=== PATIENT | female | born 1990 | race Caucasian/White ===

== ENCOUNTER 2018-11-23 10:05 | Day surgery (SDC) | payer SELFPAY ==
[2018-11-23 10:22] VITALS: BMI 18.6
[2018-11-23] MEDS ORDERED: Betamet Acet/Betamet Na Ph 30 MG/5 ML VIAL ONE (11:32)
[2018-11-23] MEDS ORDERED: Betamet Acet/Betamet Na Ph 30 MG/5 ML VIAL IM SCH (12:00)
--- NOTE | 2018-11-23 12:58 | ULT ---
OB ULTRASOUND: INDICATION: Intrauterine with vaginal bleeding. The patient has a known subchorionic hemorrhage. COMPARISON: There are no comparison studies. FINDINGS: There is a single viable intrauterine identified. gestational age by ultrasound measuremen ts is 24 weeks 4 days. There is an anterior placenta which is low lying. The anterior placenta extends to the internal os a nd may partially cover the os. I cannot exclude partial previa. There is abnormal hypoechoic echogenicity seen between the uterine wall and the placenta in the lower uterine segment just above the internal os. This presumably represents the area of subchorionic hem orrhage which has been previously documented. Cervical length: 3.2 cm. heart rate: 168 b.p.m. Presentation: Vertex. Amniotic fluid: Adequate. BETO recorded at 10.1 cm. IMPRESSION: 1. Viable intrauterine gestation of 24 weeks 4 days by ultrasound measurement. 2. Anterior low-lying placenta. The tip of the placenta extends to the internal os and may partiall y cover the os. 3. There is abnormal hypoechogenicity between the low-lying placenta and uterine wall in the lower u terine segment which would be consistent with known area of subchorionic hemorrhage. POS: [facility]
--- NOTE | 2018-11-23 12:59 | PRG ---
DATE OF SERVICE: 11/23/2018 PRESENTING COMPLAINT: Vaginal bleeding and occasional contractions at 24 weeks. HISTORY OF PRESENT ILLNESS: Ms. Epperson is a 28-year-old 3, para 1, AB 1, at 24 weeks' gestation[address] She [address] Dr[address] Vinson. She has a known history of low-lying placenta and a subchorionic hematoma. She has had some bleeding off and on for the past several weeks. She reports today that there was a sudden gush and she was concerned that it might be rupture of membranes. She reports it was dark blood, not bright red. She had some mild contractions. She reports an active fetus. BUSINESS INTELLIGENCE DIRECTOR history is noted. Blood type Rh positive. Otherwise, uncomplicated . PAST MEDICAL HISTORY: None. PAST SURGICAL HISTORY: None. ALLERGIES: DENIES. MEDICATIONS: vitamins. SOCIAL HISTORY: Denies tobacco, alcohol, or drug use. FAMILY HISTORY: Noncontributory. REVIEW OF SYSTEMS: Noncontributory. PHYSICAL EXAMINATION: GENERAL: White female, resting comfortably. VITAL SIGNS: FHTs 130s. Temperature 98.6, respirations 18, blood pressure 118/72. HEENT: Within normal limits. LUNGS: Clear to auscultation bilaterally. HEART: Regular rhythm. ABDOMEN: Soft, nontender. Fundal height 24 cm. FHTs 130s. Vulvar lesions. Vagina with a small to moderate amount of old blood. No pooling fluid. Her cervix is closed, long and high on exam. EXTREMITIES: No clubbing, cyanosis, or edema. IMAGING STUDIES: Ultrasound performed revealed an BETO of greater than 10 cm with a persistent low-lying placenta. Cervix of approximately 3 cm in length. IMPRESSION: Expulsion of unknown retroplacental hematoma clot without evidence of labor or rupture of membranes. PLAN: Discussed with the patient options. We will go ahead and administer corticosteroids because of elevated risk of delivery. The patient will receive second dose tomorrow. She is discharged home and keep scheduled followup with Dr. Vinson. Job ID: [id number]
== END 2018-11-23 11:35 | disposition home or self-care (01) ==
LOC: L&D/OP 10:05 → EEVIPCON 10:05 → L&D/OP 11:35
PROVIDERS: ATTEND Obstetrics & Gynecology
DX: O44.52 Low lying placenta with hemorrhage, second trimester (principal); Z3A.24 24 weeks gestation of pregnancy; Z79.899 Other long term (current) drug therapy
CPT/HCPCS: 76815; 96372; 99282; J0702

== ENCOUNTER 2018-12-09 08:23 | Inpatient (IN) | payer BC ==
[2018-12-09] MEDS ORDERED: Calcium Gluconate 4.6 MEQ in Sodium Chloride 0.9% 100 ML IVPB PRN (08:41)
[2018-12-09] MEDS ORDERED: Magnesium Sulfate 20 GM/WATER 500 ML BAG IVPB SCH (08:45)
[2018-12-09] MEDS ORDERED: Lactated Ringer's 1,000 ML IV SCH (08:45)
[2018-12-09] MEDS ORDERED: Magnesium Sulfate 20 gm/500 ml 20 GM/500 ML BAG ONE (08:57)
[2018-12-09 09:10] LABS: Amnisure Test RUPTURE DETECTED (No Rupture)
[2018-12-09 09:12] LABS: Amnisure Internal Control QC ACCEPTABLE (ACCEPTABLE)
[2018-12-09 09:23] VITALS: BMI 19.9
[2018-12-09] MEDS ORDERED: Zolpidem Tartrate 5 MG TAB PO PRN (09:45)
[2018-12-09] MEDS: Magnesium Sulfate 20 gm/500 ml 20 GM/500 ML BAG IVPB SCH ×2 (09:45→19:22)
[2018-12-09] MEDS: Lactated Ringer's 1,000 ML IV SCH ×2 (09:45→23:57)
[2018-12-09] MEDS ORDERED: Azithromycin 250 MG TAB PO SCH (09:45)
--- NOTE | 2018-12-09 09:56 | PDOC.LDHP ---
Labor and Delivery H&P Chief complaint: loss of fluid HPI: Pt is a 28yo Allergies/Adverse Reactions: Allergies Allergy/AdvReac Type Severity Reaction Status Date / Time No Allergy Information Allergy Verified 12/09/18 09:18 Available - Plan Plan: admit to L&D, GBS antibiotic prophylaxis, magnesium for neuroprotection, informed consent obtained, anesthesia consult for pain management -: A/P: Pt
[2018-12-09 10:22] LABS: Hemoglobin 12.9 g/dL (12.0-16.0); Mean Corpuscular HGB CONC 33.5 g/dL (32.0-36.0); Mean Corpuscular Hemoglobin 32.5 pg (27.0-31.0); Mean Platelet Volume 7.4 fL (7.4-10.4); Platelet Count 184 thou/uL (130-400); RBC Distribution Width 11.7 % (11.5-14.5); Red Blood Cell (RBC) Count 3.97 mill/uL (4.20-5.40); White Blood Cell (WBC) Count 8.7 thou/uL (4.8-10.8)
[2018-12-09] MEDS: Ampicillin 2 GM in Sodium Chloride 0.9% 100 ML IVPB SCH ×3 (10:25→23:57)
--- NOTE | 2018-12-09 10:36 | PDOC.LDHP ---
Labor and Delivery H&P Chief complaint: loss of fluid HPI: Pt is a 28yo @ 26.4 weeks who reports PPROM overnight. complicated by chronic subchorionic hemorrhage and bleeding 2 weeks ago. Current gestational age (weeks): 26 Due date: 03/13/19 Dating criteria: last menstrual period, first trimester ultrasound Grav: 3 Para: 1 OB History Details: chronic subchorionic hemorrhage and bleeding @ 24 weeks Current complications: other (bleeding @ 24 weeks, chronic subchorionic hemorrage) Past Medical History: none Current medications: pre-christian vitamins Previous surgical history: none Allergies/Adverse Reactions: Allergies Allergy/AdvReac Type Severity Reaction Status Date / Time No Allergy Information Allergy Verified 12/09/18 09:18 Available Social history: none - Physical Exam Vital signs reviewed and normal: yes General: NAD Heart: RRR Lungs: CTAB Abdomen: gravid Extremeties: no edema FHT: category 1 - Vaginal Exam cm dilated: 0 (closed and 3.7cm on US) - OB Labs Blood type: A RH: positive Antibody Screen: negative HIV: negative RPR: negative HEPSAg: negative 1 hour GCT: negative GBS: unknown Rubella: immune - Assessment L&D Assessment: premature rupture of membranes - Plan Plan: admit to L&D, GBS antibiotic prophylaxis, magnesium for neuroprotection, informed consent obtained, anesthesia consult for pain management -: A/P: 28yo @ 26.4 weeks w PPROM. -Magnesium -rescue dose of Celestone x 1 ordered (rec'd > 2 weeks ago @ 24 weeks) -Azithromycin and ampicillin ordered -bedside US VTX, EFW pending, placenta low lying on MFM report and BVWC report, appears to be low lying on US today as well, report pending -monitor for si/sx of labor, delivery for /maternal indications -NICU aware
[2018-12-09] MEDS: Betamet Acet/Betamet Na Ph 30 MG/5 ML VIAL IM SCH (10:59)
[2018-12-09 11:05] LABS: Syphilis Antibody Nonreactive (Nonreactive); Syphilis Antibody Index 0.04 S/CO (<1.00 Non-Reactive)
--- NOTE | 2018-12-09 13:12 | ULT ---
OB ULTRASOUND: Date: 12/09/18 HISTORY: Follow-up size and dates. Amniotic fluid volume. COMPARISON: 11/23/18 study. FINDINGS: Real-time imaging of the pelvis shows a single, viable intrauterine , which is in a cephalic presentation. The placenta is anterior in location. It does not appear to represent a previa on this examination. It is slightly low-lying, but does not cover the cervical os. The cervical canal length is 3.7 cm. Amniotic fluid volume is reduced. Amniotic fluid index is 5.1. measurements are as follows: BPD: 7.0 cm, 28 weeks/2 days HC: 24.9 cm, 27 weeks/0 days AC: 20.3 cm, 24 weeks/6 days FL: 4.8 cm, 25 weeks/6 days The heart rate is 150 beats/minute. Assessment of anatomy was not performed on this study . IMPRESSION: 1. Single, viable intrauterine in cephalic presentation. Overall measurements correspond t o a gestational age of 26 weeks/4 days. Estimated date of delivery is 03/13/19. This is consistent wi th estimated age from the previous ultrasound of 11/23/18. Of note, there is a developing mild discre pancy between head measurements and abdominal circumference and femur length measurements, raising th e possibility of a developing intrauterine growth retardation. 2. Placenta which is anterior in location. It is low-lying. The lower margin of the placenta comes v syed close to the cervical os, but does not definitely extend over the os. I still would recommend fol low-up ultrasound for reassessment of this. 3. Oligohydramnios and amniotic fluid index of 5.8 was obtained on this study. POS: [facility]
--- NOTE | 2018-12-09 13:47 | PDOC.LDPN ---
Labor & Delivery Progress Note - Subjective Subjective: other (ctx q 10-15 mins) - Objective Vital signs reviewed and normal: yes General: resting FHT: variability present AROM: bloody fluid (scant dark blood w amniotic fluid) - Assessment (1) 26 weeks gestation of Code(s): Z3A.26 - 26 WEEKS GESTATION OF Current Visit: Yes Status : Acute (2) History of premature rupture of membranes (PPROM) Code(s): Z87.59 - PERSONAL HISTORY OF COMP OF PREG, CHLDBRTH AND THE PUERP Current Visit: Yes Status: Acute Plan: continue plan of care -: A?P: Irregular ctx, continue Mag and latency abx. Notify for increase pain/ frequ of contractions and SVE at that time if indicated.
--- NOTE | 2018-12-09 14:40 | PDOC.APC ---
Antepartum Consult AIDA NARVAEZ is a 28 year old female at [26 4/7] gestational weeks. She presented to L&D with SROM. She received BMZ on 11/23 for vaginal bleeding and chronic subchorionic bleeding. I was asked by Dr Casanova to speak with the patient regarding anticipated course for a baby born at 26 weeks. I outlined that the timing and mode of delivery is a decision that will be made by the OB service. Once the patient is taken for delivery, the resuscitation team will be present. The initial focus will be on respiratory stabilization and may include CPAP or intubation with surfactant administration. I discussed that the patient will need to be admitted to the NICU in an isolette due to temperature instability associated with prematurity. We will then obtain IV access umbilical given gestational age as babies are at risk for hypoglycemia, will need BP monitoring and blood draws as well as TPN administration while slowly increasing feeds. We discussed that babies born are at higher risk for feeding intolerance, infection and jaundice. I discussed that breastmilk is the best nutrition for babies and she is strongly encouraged to pump after delivery. Mother does plan to breastfeed and we discussed the availability of donor milk. We discussed slowly increasing enteral feedings and the use of TPN while increasing feeding volumes. I outlined the need for a feeding tube (OG or NG) until suck/swallow/breathe reflex can be established. We discussed the need for ROP and head US screening. I explained that the duration of hospital stay will be determined on the clinical course of the baby. I outlined the milestones that needed to be achieved to ensure safe discharge home. They had the opportunity to ask questions. I encouraged them to contact our service again if additional questions arise. Labs: Ante Labs Blood Type A POSITIVE 12/09/18 10:04
[2018-12-09 15:47] LABS: Hep B Surf Ag Non-Reactive S/CO (NonReactive)
[2018-12-10] MEDS: Ampicillin 2 GM in Sodium Chloride 0.9% 100 ML IVPB SCH ×3 (05:36→18:07)
[2018-12-10] MEDS: Magnesium Sulfate 20 gm/500 ml 20 GM/500 ML BAG IVPB SCH (05:38)
--- NOTE | 2018-12-10 07:41 | PDOC.LDPN ---
Labor & Delivery Progress Note - Subjective Subjective: comfortable (no contractions overnight, no fever/chills or fundal tenderness, +FM noted) - Objective Vital signs reviewed and normal: yes General: resting Uterine fundus: non tender - Assessment (1) 26 weeks gestation of Code(s): Z3A.26 - 26 WEEKS GESTATION OF Current Visit: Yes Status : Acute (2) History of premature rupture of membranes (PPROM) Code(s): Z87.59 - PERSONAL HISTORY OF COMP OF PREG, CHLDBRTH AND THE PUERP Current Visit: Yes Status: Acute Plan: other -: A/P: @ 26.5 w PPROM @ 26.4. S/P steroid benefits @ 24 weeks with rescue dose Celestone given approx 24hrs ago. Discussed continue IV abx, DC magnesium and continue to monitor closely on L and D. Discussed restart magnesium if delivery is imminent and <32 weeks GA. IOL for /maternal indications reviewed.
[2018-12-10] MEDS ORDERED: Bicitra 30 ML UDCUP ONE (11:50)
[2018-12-10] MEDS: Prenatal Vitamin 1 TAB PO SCH (12:19)
[2018-12-10] MEDS: Betamet Acet/Betamet Na Ph 30 MG/5 ML VIAL IM SCH (12:19)
[2018-12-10] MEDS: Floranex Packet PO SCH (12:20)
[2018-12-10] MEDS: Azithromycin 250 MG TAB PO SCH (12:20)
[2018-12-10] MEDS: Lactated Ringer's 1,000 ML IV SCH (22:35)
[2018-12-11] MEDS: Ampicillin 2 GM in Sodium Chloride 0.9% 100 ML IVPB SCH ×2 (00:55→06:12)
[2018-12-11] MEDS: Lactated Ringer's 1,000 ML IV SCH (00:56)
[2018-12-11] MEDS: Prenatal Vitamin 1 TAB PO SCH (09:17)
[2018-12-11] MEDS: Azithromycin 250 MG TAB PO SCH (09:17)
[2018-12-11] MEDS: Floranex Packet PO SCH (09:18)
--- NOTE | 2018-12-11 09:23 | PDOC.LDPN ---
Labor & Delivery Progress Note - Subjective Subjective: comfortable (no contractions, occ leaking, passed a 2-3cm old/brown clot last night, no bleeding noted otherwise, no fever/chills, no tenderness) - Objective Vital signs reviewed and normal: yes Uterine fundus: non tender FHT: variability present (appropriate for GA), absent or minimal variables [place] contractions every: rare - Assessment (1) 26 weeks gestation of Code(s): Z3A.26 - 26 WEEKS GESTATION OF Current Visit: Yes Status : Acute (2) History of premature rupture of membranes (PPROM) Code(s): Z87.59 - PERSONAL HISTORY OF COMP OF PREG, CHLDBRTH AND THE PUERP Current Visit: Yes Status: Acute Plan: continue plan of care -: Plan to DC IV today and transition to oral abx. Will D/C continuous monitoring and scheduled NST BID and BPP q and Saturday. Reviewed notifying staff immediately for any bright red bleeding, contractions or si/sx of fever/ infection.
[2018-12-11] MEDS ORDERED: Polyethylene Glycol 3350 17 GM Packet PO PRN (13:12)
--- NOTE | 2018-12-11 15:27 | ULT ---
BIOPHYSICAL PROFILE: History: Pre mature rupture of membranes. FINDINGS: Single viable intrauterine in cephalic presentation is noted. heart rate is 160 beats /minute. Placenta is anterior in location. Amniotic fluid index is 1.7. biophysical profile: tone: 2 breathin movements: 2 Amniotic fluid 0 IMPRESSION: biophysical profile score of 6 of possible 8. POS: [facility]
[2018-12-11] MEDS: AMOXicillin 250 MG CAP PO SCH (21:11)
[2018-12-12] MEDS: Lactated Ringer's 1,000 ML IV SCH (02:23)
--- NOTE | 2018-12-12 08:13 | PDOC.LDPN ---
Labor & Delivery Progress Note - Subjective Subjective: comfortable (no contractions, after an approx hour of contractions yesterday she passed a small dark clot, no bleeding since, good FM, no fever/ chills, no uterine tenderness) - Objective Vital signs reviewed and normal: yes General: NAD, resting Uterine fundus: non tender FHT: variability present, absent or minimal variables [place] contractions every: rare - Assessment (1) History of premature rupture of membranes (PPROM) Code(s): Z87.59 - PERSONAL HISTORY OF COMP OF PREG, CHLDBRTH AND THE PUERP Current Visit: Yes Status: Acute (2) 27 weeks gestation of Code(s): Z3A.27 - 27 WEEKS GESTATION OF Current Visit: Yes Status : Acute Plan: continue plan of care -: 27 weeks PPROM @ 26.4. BPP 04/18, -2 for oligohydramnios, NST reassuring, continue BID NST, close monitoring for si/sx of labor/infection. Continue oral abx.
[2018-12-12] MEDS: Lactinex Tablet PO SCH (09:10)
[2018-12-12] MEDS: Prenatal Vitamin 1 TAB PO SCH (09:10)
[2018-12-12] MEDS: AMOXicillin 250 MG CAP PO SCH ×2 (09:10→20:44)
--- NOTE | 2018-12-13 07:36 | PDOC.LDPN ---
Labor & Delivery Progress Note - Subjective Subjective: comfortable, no concerns, other (no chills or aches, +FM, no bleeding) - Objective Vital signs reviewed and normal: yes General: NAD, resting Uterine fundus: non tender - Assessment (1) History of premature rupture of membranes (PPROM) Code(s): Z87.59 - PERSONAL HISTORY OF COMP OF PREG, CHLDBRTH AND THE PUERP Current Visit: Yes Status: Acute (2) 27 weeks gestation of Code(s): Z3A.27 - 27 WEEKS GESTATION OF Current Visit: Yes Status : Acute -: HD # 5 sp PPROM @ 26.4 now 27.1 weeks. No si/sx of labor or or maternal infection. Will redose Azithromycin today, continue Amox through Saturday. BPP sched for Saturday, continue NST q shift.
[2018-12-13] MEDS ORDERED: Azithromycin 250 MG TAB PO SCH (09:00)
[2018-12-13] MEDS: Lactinex Tablet PO SCH (09:26)
[2018-12-13] MEDS: Prenatal Vitamin 1 TAB PO SCH (09:26)
[2018-12-13] MEDS: AMOXicillin 250 MG CAP PO SCH ×2 (09:26→20:52)
--- NOTE | 2018-12-14 08:02 | PRG ---
DATE OF SERVICE: 12/14/2018 TIME OF SERVICE: 0710 hours. SUBJECTIVE: Ms. Epperson is resting comfortably. She is a G2, P1, at 27 weeks and 2 days with PPROM at 26 and 4. She denies contractions. She reports an active fetus. OBJECTIVE: VITAL SIGNS: Vitals are stable. The patient remains afebrile. T-max 98.4, respirations 18, and pulse 85. ABDOMEN: Soft and nontender without rebound or guarding. PERINEUM: Small amount of fluid. Fundus nontender. FHTs 130s to 140s, reactive NST. IMPRESSION: 27 weeks 2 days premature rupture of the membranes. PLAN: Continue amoxicillin with dosing completed tomorrow. Review BPP tomorrow. Continue ramirez rest. Await active labor or signs or symptoms of chorio or 34 weeks gestation. Job ID: [id number]
[2018-12-14] MEDS: Lactinex Tablet PO SCH (09:18)
[2018-12-14] MEDS: Prenatal Vitamin 1 TAB PO SCH (09:18)
[2018-12-14] MEDS: AMOXicillin 250 MG CAP PO SCH ×2 (09:18→22:09)
--- NOTE | 2018-12-15 09:17 | ULT ---
BIOPHYSICAL PROFILE: Date: 12-15-18 Comparison: 12-11-18 History: Pre-mature rupture of membranes. FINDINGS: Focused ultrasound of the gravid uterus provided for biophysical profile evaluation. There is a single intrauterine gestation present demonstrating a vertex presentation. heart rat e is 155 beats/minute. The horse wrangler reports 2 out of 2 score movement, tone, and breathing movement. Am niotic fluid volume score is 0 out of 2. Amniotic fluid index is 1.7 cm, consistent with oligohydramn ios. IMPRESSION: Oligohydramnios, stable. 6 out of 8 biophysical profile score, unchanged. POS: [facility]
[2018-12-15] MEDS: AMOXicillin 250 MG CAP PO SCH ×2 (09:24→23:04)
[2018-12-15] MEDS: Lactinex Tablet PO SCH (09:24)
[2018-12-15] MEDS: Prenatal Vitamin 1 TAB PO SCH (09:24)
--- NOTE | 2018-12-15 12:09 | PDOC.LDPN ---
Labor & Delivery Progress Note - Subjective Subjective: comfortable, other (no si/sx of infection, +FM) - Objective Vital signs reviewed and normal: yes General: NAD, resting Uterine fundus: non tender FHT: category 1 - Assessment (1) History of premature rupture of membranes (PPROM) Code(s): Z87.59 - PERSONAL HISTORY OF COMP OF PREG, CHLDBRTH AND THE PUERP Current Visit: Yes Status: Acute (2) 27 weeks gestation of Code(s): Z3A.27 - 27 WEEKS GESTATION OF Current Visit: Yes Status : Acute Plan: continue plan of care -: A/P: HD #7, completed oral abx today. BPP 8/10 (oligo), vtx, no si/sx of infection or labor. Continue NST BID and close monitoring.
--- NOTE | 2018-12-16 08:52 | PDOC.LDPN ---
Labor & Delivery Progress Note - Subjective Subjective: comfortable, other (noted a small amount of dark blood last night, no bleeding this AM) - Objective Vital signs reviewed and normal: yes General: resting Uterine fundus: non tender FHT: variability present, absent or minimal variables - Assessment (1) History of premature rupture of membranes (PPROM) Code(s): Z87.59 - PERSONAL HISTORY OF COMP OF PREG, CHLDBRTH AND THE PUERP Current Visit: Yes Status: Acute (2) 27 weeks gestation of Code(s): Z3A.27 - 27 WEEKS GESTATION OF Current Visit: Yes Status : Acute Plan: continue plan of care -: A/P: 27.4 w PPROM @ 26.4, doing well. No si/sx of infection or labor. Continue antepartum surveillance.
[2018-12-16] MEDS: Prenatal Vitamin 1 TAB PO SCH (10:27)
[2018-12-16] MEDS: Lactinex Tablet PO SCH (13:40)
[2018-12-17] MEDS: Lactinex Tablet PO SCH (09:28)
[2018-12-17] MEDS: Prenatal Vitamin 1 TAB PO SCH (09:28)
--- NOTE | 2018-12-17 09:58 | PDOC.LDPN ---
Labor & Delivery Progress Note - Subjective Subjective: comfortable, other (mild nausea this AM) - Objective Vital signs reviewed and normal: yes General: NAD, resting FHT: variability present, absent or minimal variables - Assessment (1) History of premature rupture of membranes (PPROM) Code(s): Z87.59 - PERSONAL HISTORY OF COMP OF PREG, CHLDBRTH AND THE PUERP Current Visit: Yes Status: Acute (2) 27 weeks gestation of Code(s): Z3A.27 - 27 WEEKS GESTATION OF Current Visit: Yes Status : Acute Plan: continue plan of care -: PPROM @ 26.4, now 27.5 weeks, mild nausea this AM, discussed Zofran if needed for nausea (child w recent GI illness). Continue to monitor for si/sx of labor or infection.
[2018-12-18] MEDS: Lactinex Tablet PO SCH (08:32)
[2018-12-18] MEDS: Prenatal Vitamin 1 TAB PO SCH (08:36)
--- NOTE | 2018-12-18 10:12 | PDOC.LDPN ---
Labor & Delivery Progress Note - Subjective Subjective: comfortable (Occ ctx, irregular, somewhat painful, no VB. +LOF clear. Nl BM. +FM.) - Objective Vital signs reviewed and normal: yes (afebrile) General: NAD Uterine fundus: non tender FHT: category 1 [place] contractions every: 6-10min Plan: other -: 28yo A1 at 27w6d by LMP with PPROM Day #9 1. PPROM D#9 s/p latency abx, on e/o IAI, PTL, abruption 2. Prematurity s/p BMZ and rescue dose, Mag for [employer], s/p didier consult 3. IUP Ceph presentation, NST Cat 1, BPP today, last BETO 1.7cm, will need glucose screening and Tdap per primary MD. 4. Pt asking about free CBB if delivers prior to 32w, will need CBR kit available for this scenario and pt will contact company to see if she qualifies. 5. Cont antepartum care.
--- NOTE | 2018-12-18 11:43 | ULT ---
ULTRASOUND BIOPHYSICAL PROFILE: DATE: 12/18/2018. HISTORY: A 28-year-old female with premature rupture of membranes. The project officer gave verbal report of the results to nurse Bailey immediately after the completion of the ultrasound. FINDINGS: breathin. tone: 2. movement: 2. Amniotic fluid volume: 0. BETO 3.5 cm. heart rate 144 bpm. Vertex lie. IMPRESSION: 1. Biophysical profile score of 6/8, excluding the non-stress test. 2. Oligohydramnios. GILBERTO Prater POS: [facility]
[2018-12-19] MEDS: Lactinex Tablet PO SCH (11:22)
--- NOTE | 2018-12-19 12:14 | PDOC.LDPN ---
Labor & Delivery Progress Note - Subjective Subjective: comfortable, other (occ leakage, rare old dark blood or small clot , good FM, nausea resolved, no si/sx of infection) - Objective Vital signs reviewed and normal: yes General: NAD FHT: variability present, absent or minimal variables - Assessment (1) History of premature rupture of membranes (PPROM) Code(s): Z87.59 - PERSONAL HISTORY OF COMP OF PREG, CHLDBRTH AND THE PUERP Current Visit: Yes Status: Acute (2) 28 weeks gestation of Code(s): Z3A.28 - 28 WEEKS GESTATION OF Current Visit: Yes Status : Acute Plan: continue plan of care -: A/P: 28 weeks w PPROM @ 26.4 doing well, continue to monitor closely for sx/si of labor, deliver for /maternal indications.
[2018-12-19] MEDS: Prenatal Vitamin 1 TAB PO SCH (16:06)
--- NOTE | 2018-12-20 07:43 | PDOC.EVN ---
Event Note - Event Note Event Note: Doing well, no complaints. Small leaking, old blood. No active bleeding, ctx. +FM. O: AFVSS Gen - AAO, NAD Abd - gravid, NTTP A/P: 28w1d with P3ROM, HD10. Continue expectant management.
[2018-12-20] MEDS: Prenatal Vitamin 1 TAB PO SCH (11:36)
[2018-12-21] MEDS: Lactinex Tablet PO SCH (18:06)
[2018-12-21] MEDS: Prenatal Vitamin 1 TAB PO SCH (18:06)
--- NOTE | 2018-12-22 08:11 | PDOC.LDPN ---
Labor & Delivery Progress Note - Subjective Subjective: comfortable, other (light pink blood mixed in fluid overnight, no bright red bleeding, no active bleeding or clots, good movement) - Objective Vital signs reviewed and normal: yes General: resting FHT: variability present - Assessment (1) History of premature rupture of membranes (PPROM) Code(s): Z87.59 - PERSONAL HISTORY OF COMP OF PREG, CHLDBRTH AND THE PUERP Current Visit: Yes Status: Acute (2) 28 weeks gestation of Code(s): Z3A.28 - 28 WEEKS GESTATION OF Current Visit: Yes Status : Acute -: A/P: 28.3 weeks HD 13, doing well, noted light bleeding mixed w fluid yesterday per hx-will monitor closely for bleeding/labor/signs or sx of infection. BPP today.
[2018-12-22] MEDS: Prenatal Vitamin 1 TAB PO SCH (08:43)
[2018-12-22] MEDS: Lactinex Tablet PO SCH (08:43)
--- NOTE | 2018-12-22 09:45 | PRG ---
DATE OF SERVICE: 12/21/2018 SUBJECTIVE: The patient is a 28-year-old G2, P1 female with an intrauterine at 28 weeks and 2 days, who is now hospital day 12 for premature rupture of membranes. The patient is status post steroids and antibiotics. She denies any fever, abdominal pain, vaginal bleeding, or any illness or sickness. OBJECTIVE: VITAL SIGNS: Blood pressure 104/57, heart rate of 75, respiratory rate of 18, saturating 99% on room air, and temperature 98.2. GENERAL: She appears to be in no acute distress. She is alert, oriented, cooperative, and pleasant to interact with. HEENT: Head, normocephalic and atraumatic. ABDOMEN: Soft, gravid, and nontender. EXTREMITIES: Nontender and nonedematous. DIAGNOSTIC DATA: heart tracing shows fetus with a baseline in the 140s with moderate long-term variability, 10 x 10 accelerations. Tocometer is not showing any contractions. ASSESSMENT AND PLAN: The patient is a 28-year-old G2, P1 female with an intrauterine at 28 weeks and 2 days, admitted for premature rupture of membranes. There is no evidence of labor or abruption at this time. Fetus has a category one tracing appropriate for gestational age. We will continue in-house management. Fetus is vertex on her last biophysical profile on 12/18/2018. Job ID: [id number]
--- NOTE | 2018-12-22 11:16 | ULT ---
NONSTRESS BIOPHYSICAL PROFILE: HISTORY: Premature rupture of membranes. COMPARISON: 12/18/2018 TECHNIQUE: A non-stress biophysical profile was performed. FINDINGS: position is vertex. Placenta is on the right. Amniotic fluid index is 1.9. heart tones with a rate of 139 beats per minute. tone is 2. breathing is 2. movement is 2. Amniotic fluid is 0. Total score is 6/8. IMPRESSION: Nonstress biophysical profile score is 6/8. Previously, the score was also 6/8. The findings were conveyed to the nurse by the flat ironer, Markus Flaherty, at the completion of the e xamination, on 12/22/2018, at 9:00 a.m. CODE CR POS: [facility]
[2018-12-23] MEDS: Lactinex Tablet PO SCH (10:12)
[2018-12-23] MEDS: Prenatal Vitamin 1 TAB PO SCH (10:12)
--- NOTE | 2018-12-23 10:33 | PDOC.LDPN ---
Labor & Delivery Progress Note - Subjective Subjective: comfortable, other (min pink spotting w fluid, good FM, no fever/ chills/tenderness) - Objective Vital signs reviewed and normal: yes General: NAD Uterine fundus: non tender FHT: variability present, absent or minimal variables - Assessment (1) History of premature rupture of membranes (PPROM) Code(s): Z87.59 - PERSONAL HISTORY OF COMP OF PREG, CHLDBRTH AND THE PUERP Current Visit: Yes Status: Acute (2) 28 weeks gestation of Code(s): Z3A.28 - 28 WEEKS GESTATION OF Current Visit: Yes Status : Acute Plan: continue plan of care -: A/P: HD 15, 28.4 weeks w PPROM. No concerns, no si/sx of infection or labor.
[2018-12-23] MEDS: Lactated Ringer's 1,000 ML IV SCH ×2 (17:54→19:06)
--- NOTE | 2018-12-23 18:02 | PDOC.EVN ---
Event Note - Event Note Event Note: Called to room to assess patient. Started having intense groin pain followed by regular, strong ctx. No increase in bleeding or other issues. +FM. O: AFVSS Gen - AAO, NAD but appears uncomfortable Abd - gravid, ctx palpate moderate to strong A/P: IV restarted. Will continue to monitor and check SVE if ctx continue to be regular. CBC sent. Dr. Vinson notified. [place]
[2018-12-23 18:14] LABS: #Basophils 0.1 thou/uL (0.0-0.2); #Eosinphils 0.1 thou/uL (0.0-0.7); #Lymphocytes 1.8 thou/uL (1.20-3.40); #Monocytes 0.4 thou/uL (0.11-0.59); %Basophils 0.9 % (0.0-1.0); %Eosinophils 1.3 % (0.0-10.0); %Lymphocytes 21.8 % (21.0-51.0); Hemoglobin 14.2 g/dL (12.0-16.0); Mean Corpuscular HGB CONC 34.2 g/dL (32.0-36.0); Mean Corpuscular Volume 96.4 fL (78.0-98.0); Mean Platelet Volume 7.6 fL (7.4-10.4); Platelet Count 199 thou/uL (130-400); White Blood Cell (WBC) Count 8.4 thou/uL (4.8-10.8)
[2018-12-23] MEDS ORDERED: Lactated Ringer's 1,000 ML IV SCH (19:00)
--- NOTE | 2018-12-23 19:07 | PDOC.EVN ---
Event Note - Event Note Event Note: Called by nurse and [facility]H, noted regular painful ctx around 1730, they have since decreased in freq and intensity. No bleeding noted, FHT reassuring, continue to monitor closely.
--- NOTE | 2018-12-24 09:03 | PDOC.LDPN ---
Labor & Delivery Progress Note - Subjective Subjective: comfortable, other (contractions stopped, min blood when she goes to RR, good FM) - Objective Vital signs reviewed and normal: yes General: resting FHT: variability present - Assessment (1) History of premature rupture of membranes (PPROM) Code(s): Z87.59 - PERSONAL HISTORY OF COMP OF PREG, CHLDBRTH AND THE PUERP Current Visit: Yes Status: Acute (2) 28 weeks gestation of Code(s): Z3A.28 - 28 WEEKS GESTATION OF Current Visit: Yes Status : Acute -: A/P: PPROM @ 26.4, no w 28.5-contractions noted last night that resolved w rest. Plan to continue to monitor closely. HGB and WBC WNL yesterday evening. BPP tomorrow. PERFECTO next week.
[2018-12-24] MEDS: Lactinex Tablet PO SCH (10:19)
[2018-12-24] MEDS: Prenatal Vitamin 1 TAB PO SCH (10:19)
--- NOTE | 2018-12-25 08:20 | PDOC.LDPN ---
Labor & Delivery Progress Note - Subjective Subjective: comfortable, other (contractions overnight stopped after about 30 mins) - Objective Vital signs reviewed and normal: yes General: resting FHT: variability present - Assessment (1) History of premature rupture of membranes (PPROM) Code(s): Z87.59 - PERSONAL HISTORY OF COMP OF PREG, CHLDBRTH AND THE PUERP Current Visit: Yes Status: Acute (2) 28 weeks gestation of Code(s): Z3A.28 - 28 WEEKS GESTATION OF Current Visit: Yes Status : Acute Plan: continue plan of care -: A/P: Doing well this AM, contractions overnight that have stopped. Good FM, no concerns this AM. Continue to watch closely for labor or si/x of infection or distress. BPP today.
[2018-12-25] MEDS: Prenatal Vitamin 1 TAB PO SCH (10:32)
[2018-12-25] MEDS: Lactinex Tablet PO SCH (10:32)
--- NOTE | 2018-12-25 12:30 | ULT ---
ULTRASOUND BIOPHYSICAL PROFILE: HISTORY: Premature rupture of membranes. COMPARISON: [facility] 12/22/2018. FINDINGS: Biophysical profile score is 6/8. Amniotic fluid index is 1.38 cm. The fetus is in cephalic present ation. The placenta is anterior. Cervix measures 3.2 cm. The heart rate is documented at 137 b.p.m. IMPRESSION: Biophysical profile score of 6/8. POS: [facility]
--- NOTE | 2018-12-26 08:26 | PDOC.LDPN ---
Labor & Delivery Progress Note - Subjective Subjective: comfortable - Objective Vital signs reviewed and normal: yes General: resting Uterine fundus: non tender FHT: category 1, variability present - Assessment (1) History of premature rupture of membranes (PPROM) Code(s): Z87.59 - PERSONAL HISTORY OF COMP OF PREG, CHLDBRTH AND THE PUERP Current Visit: Yes Status: Acute (2) 29 weeks gestation of Code(s): Z3A.29 - 29 WEEKS GESTATION OF Current Visit: Yes Status : Acute Plan: continue plan of care -: A/P: Pt is 29 weeks 0 d, sp PPROM @ 26.4 doing well, BPP 6/8 yesterday and cervix on US approx 3cm. Pt reports good FM, denies sx of labor or infection at this time. Continue close monitoring.
[2018-12-26] MEDS: Prenatal Vitamin 1 TAB PO SCH (09:28)
[2018-12-26] MEDS: Lactinex Tablet PO SCH (09:28)
--- NOTE | 2018-12-27 07:16 | PDOC.EVN ---
Event Note - Event Note Event Note: 29 11/17 weeks. Resting, no complaints. VSS AF Monitoring remains reassuring, vtx at last scan. Plan: Cont. expectant mgmt., deliver for chorioamnionitis, concern or labor.
[2018-12-27] MEDS: Prenatal Vitamin 1 TAB PO SCH (10:12)
[2018-12-27] MEDS: Lactinex Tablet PO SCH (10:17)
--- NOTE | 2018-12-27 19:12 | PDOC.LDPN ---
Labor & Delivery Progress Note - Subjective Subjective: painful contractions - Objective Vital signs reviewed and normal: yes General: NAD Uterine fundus: palpable contractions FHT: category 1 [place] contractions every: 2-3 mins -: Starting to have more cramping and painful ctx. Bleeding slightly more than typical but not excessive. +FM. Will restart IV and fluid bolus. Continue to monitor at this time.
[2018-12-27] MEDS ORDERED: Lactated Ringer's 1,000 ML IV SCH (19:15)
[2018-12-27] MEDS: Sodium Chloride 0.9% 1,000 ML IV SCH ×2 (19:39→19:52)
[2018-12-27] MEDS: Acetaminophen 500 MG TAB PO PRN (21:10)
--- NOTE | 2018-12-27 23:46 | PDOC.EVN ---
Event Note - Event Note Event Note: Patient feeling "off." Feeling occasional palpitations. Had a small amount of blood in the toilet. Gen - AAO, NAD Chest - RRR, CTAB Abd - soft, NTTP. Mild ctx palpated. A/P: Will continue to monitor bleeding as it is intermittent. NST reassuring but will be placed back on monitor if ctx or bleeding increase.
--- NOTE | 2018-12-28 07:48 | PDOC.LDPN ---
Labor & Delivery Progress Note - Subjective Subjective: comfortable - Objective Vital signs reviewed and normal: yes General: NAD, resting Uterine fundus: non tender -: Feeling better this morning. Only occasional ctx. Bleeding has stopped. +FM. Continue expectant management. AM NST pending.
[2018-12-28] MEDS: Prenatal Vitamin 1 TAB PO SCH (09:45)
[2018-12-28] MEDS: Lactinex Tablet PO SCH (09:45)
--- NOTE | 2018-12-29 08:06 | PDOC.LDPN ---
Labor & Delivery Progress Note - Subjective Subjective: comfortable, other (minimal bleeding on Saturday, had a "good day" yesterday, minimal contraction) - Objective Vital signs reviewed and normal: yes General: resting FHT: category 1, variability present - Assessment (1) History of premature rupture of membranes (PPROM) Code(s): Z87.59 - PERSONAL HISTORY OF COMP OF PREG, CHLDBRTH AND THE PUERP Current Visit: Yes Status: Acute (2) 29 weeks gestation of Code(s): Z3A.29 - 29 WEEKS GESTATION OF Current Visit: Yes Status : Acute Plan: continue plan of care -: A/P: 29.3 weeks, HD 21, doing well, stable. PERFECTO w BPP today, discussed UA dopplers if growth rate decreased from admission. Continue monitor closely.
[2018-12-29] MEDS: Lactinex Tablet PO SCH (10:51)
[2018-12-29] MEDS: Prenatal Vitamin 1 TAB PO SCH (10:51)
--- NOTE | 2018-12-29 11:52 | ULT ---
ULTRASOUND OB COMPLETE STANDARD ULTRASOUND BIOPHYSICAL PROFILE ULTRASOUND ABDOMEN AND PELVIS DUPLEX ARTERIOVENOUS FLOW: Date: 12/29/18 HISTORY: Rate of growth, estimated weight, umbilical artery Doppler. COMPARISON: None. FINDINGS: Real-time Cu[place] scale and color Doppler with spectral analysis of the gravid uterus performed. The biophysical profile score is 6/8, scoring 0 for amniotic fluid. position is vertex and placenta is anterior. Cervix is closed, measuring 3.3 cm in length. Umbilical Artery Doppler: At the placenta, peak systolic velocity is 33.5 cm/sec and end-diastolic velocity is 16.3 cm/sec. Sys tolic/diastolic ratio is 2.06. At mid, peak systolic velocity is 47.6 cm/sec and end-diastolic velocity is 25.1 cm/sec. Systolic/mariah stolic ratio is 1.9. At insertion, peak systolic velocity is 36.7 cm/sec and end-diastolic velocity is 14.1 cm/sec. Systolic/diastolic ratio is 2.6. Biometry: BPD: 6.99 cm, 28 weeks/1 day HC: 26.86 cm, 29 weeks/2 days AC: 25.16 cm, 29 weeks/3 days Estimated weight is 1261 gm, 15th percentile. heart rate documented at 137 beats/minute. Femur length is 3rd percentile. Biparietal diameter is 7th percentile. IMPRESSION: 1. Biophysical profile score of 6/8, scoring 0 for amniotic fluid. 2. Single, viable intrauterine , with average ultrasound age of 28 weeks/5 days. Estimated date of delivery is 03/18/19. 3. Estimated weight is 2 lbs, 12 oz, 15th percentile. 4. For biometry, the femur length is 3rd percentile and BPD is 7th percentile. 5. Umbilical artery Doppler as above. 6. Closed cervix. The findings were given verbally to nurseAlyssa, by the technologist. CODE CR. POS: [facility]
--- NOTE | 2018-12-30 08:32 | PDOC.LDPN ---
Labor & Delivery Progress Note - Subjective Subjective: comfortable (painful ctx early this AM, have spaced out and much less painful, good FM, no fever/chlils) - Objective Vital signs reviewed and normal: yes General: resting Uterine fundus: non tender FHT: category 1 [place] contractions every: 4 - Assessment (1) History of premature rupture of membranes (PPROM) Code(s): Z87.59 - PERSONAL HISTORY OF COMP OF PREG, CHLDBRTH AND THE PUERP Current Visit: Yes Status: Acute (2) 29 weeks gestation of Code(s): Z3A.29 - 29 WEEKS GESTATION OF Current Visit: Yes Status : Acute Plan: continue plan of care -: A/P: PPROM @ 26.4, now 29.4 w ctx early this AM that appear to be spacing out and with minimal discomfort. Will continue to watch closely, FHT reassuring. Keep on continuous monitoring at this time.
[2018-12-30] MEDS: Prenatal Vitamin 1 TAB PO SCH (13:13)
[2018-12-30] MEDS: Lactinex Tablet PO SCH (13:13)
[2018-12-30 17:43] LABS: Bilirubin Negative (Negative); Blood, Urine Large (Negative); Clarity CLOUDY (Clear); Glucose, Urine (Dipstick) Negative (Negative); Leukocyte Moderate (Negative); Nitrite Negative (Negative); Protein, Urine (Dipstick) 30 mg/dL (Neg-Trace); Specific Gravity, Urine 1.005 (1.002-1.036); Urobilinogen 0.2 mg/dL (0.2-1.0); pH, Urine 7.5 (5.0-9.0)
[2018-12-30 17:45] LABS: Bacteria/HPF None Seen HPF (None Seen); Hyaline Casts/LPF 0-3 HYALINE CAST LPF (0-3 Hyaline); Pathc Cast-AUWi Flag 0.58 (0-2.49); RBC/HPF GREATER THAN 50-TNTC HPF (0-3); Squamous Epithelial 0-3 HPF (0-3)
[2018-12-30 17:47] LABS: Urine Culture Reflex Yes Yes
[2018-12-31] MEDS: Prenatal Vitamin 1 TAB PO SCH (08:48)
[2018-12-31] MEDS: Lactinex Tablet PO SCH (08:50)
--- NOTE | 2018-12-31 10:53 | PDOC.LDPN ---
Labor & Delivery Progress Note - Subjective Subjective: comfortable, other (increased bleeding overnight that has resolved by exam this AM, contractions overnight have spaced out) - Objective Vital signs reviewed and normal: yes General: resting Uterine fundus: non tender - Assessment (1) History of premature rupture of membranes (PPROM) Code(s): Z87.59 - PERSONAL HISTORY OF COMP OF PREG, CHLDBRTH AND THE PUERP Current Visit: Yes Status: Acute (2) 29 weeks gestation of Code(s): Z3A.29 - 29 WEEKS GESTATION OF Current Visit: Yes Status : Acute Plan: continue plan of care -: A/P: 29.5 weeks w PPROM, episode of increased bleeding overnight, contractions that have since resolved. Expectant management reviewed and plan to delivery if bleeding is concerning for or maternal compromise. FHT reassuring overnight, good FM noted. Continue close monitoring. Suspect UTI, Macrobid ordered, cx pending. VP3 neg. Addendum: reviewed case w MFM, plan for q 3 day fibrinogen and CBC.
[2018-12-31] MEDS: Nitrofurantoin Monohyd/M-Cryst 100 MG CAP PO SCH ×2 (13:08→21:24)
[2018-12-31 13:35] LABS: #Basophils 0.1 thou/uL (0.0-0.2); #Eosinphils 0.1 thou/uL (0.0-0.7); #Lymphocytes 1.6 thou/uL (1.20-3.40); #Monocytes 0.4 thou/uL (0.11-0.59); #Neutrophils 6.3 thou/uL (1.40-6.50); %Basophils 1.1 % (0.0-1.0); %Eosinophils 0.7 % (0.0-10.0); %Lymphocytes 18.4 % (21.0-51.0); %Monocytes 4.5 % (0.0-10.0); %Neutrophils 75.3 % (42.0-75.0); Hemoglobin 13.8 g/dL (12.0-16.0); Mean Corpuscular HGB CONC 34.1 g/dL (32.0-36.0); Mean Corpuscular Hemoglobin 32.9 pg (27.0-31.0); Mean Corpuscular Volume 96.4 fL (78.0-98.0); Mean Platelet Volume 7.8 fL (7.4-10.4); Platelet Count 196 thou/uL (130-400); RBC Distribution Width 12.3 % (11.5-14.5); White Blood Cell (WBC) Count 8.4 thou/uL (4.8-10.8)
[2019-01-01] MEDS: Nitrofurantoin Monohyd/M-Cryst 100 MG CAP PO SCH (09:14)
[2019-01-01] MEDS: Lactinex Tablet PO SCH (09:14)
[2019-01-01] MEDS: Prenatal Vitamin 1 TAB PO SCH (09:14)
--- NOTE | 2019-01-01 10:35 | PDOC.LDPN ---
Labor & Delivery Progress Note - Subjective Subjective: other (less bleeding vs yesterday, no ctx or cramping) - Objective Vital signs reviewed and normal: yes General: resting FHT: category 1, variability present - Assessment (1) History of premature rupture of membranes (PPROM) Code(s): Z87.59 - PERSONAL HISTORY OF COMP OF PREG, CHLDBRTH AND THE PUERP Current Visit: Yes Status: Acute (2) 29 weeks gestation of Code(s): Z3A.29 - 29 WEEKS GESTATION OF Current Visit: Yes Status : Acute Plan: continue plan of care -: A/P: 29.6 PPROM @ 26.4 weeks. Discussed bleeding episodes w MFM yesterday who recommends q 3 day CBC and fibrinogen and deliver for maternal/ indications. US images reviewed today. BPP 6/8 off for low fluid.
--- NOTE | 2019-01-01 10:56 | ULT ---
ULTRASOUND BIOPHYSICAL PROFILE: HISTORY: premature rupture of membranes. COMPARISON: [facility] 12/29/2017. FINDINGS: The biophysical profile score is 6/8 scoring 2 for tone, 2 for breathing, 2 for mov ements, and 0 for amniotic fluid, which is 2.1 dm. heart rate documented at 153 b.p.m. IMPRESSION: 1. Biophysical profile score of 6/8. 2. Cervical length 3.1 cm. POS: [facility]
[2019-01-02] MEDS: Nitrofurantoin Monohyd/M-Cryst 100 MG CAP PO SCH (09:03)
[2019-01-02] MEDS: Lactinex Tablet PO SCH (09:03)
[2019-01-02] MEDS: Prenatal Vitamin 1 TAB PO SCH (09:04)
--- NOTE | 2019-01-02 18:53 | PRG ---
DATE OF SERVICE: 01/02/2019 PRIMARY OB: Dr. Trace Vinson. SUBJECTIVE: The patient is a 28-year-old, hospital day 24 with an intrauterine at 30 weeks' gestation, here for premature rupture of membranes. The patient has no complaints. She denies any significant contractions or bleeding at the time of my evaluation. Denies fever or abdominal pain. OBJECTIVE: VITAL SIGNS: Blood pressure 104/60, heart rate of 83, respiratory rate 18, and temperature 98.0. GENERAL: She appears to be in no acute distress. She is alert, oriented, cooperative, and pleasant to interact with. She has her little boy in the bed with her. ABDOMEN: Nontender. EXTREMITIES: Nontender, nonedematous. heart tracing, NST for premature rupture of membranes shows a baseline in the 130s with moderate long-term variability, positive 15 x 15 accelerations. Tocometer showing some irritability with occasional contractions. Biophysical profile shows a BPP of 6/8, 2/4 for fluid, cervical length of 3 cm. ASSESSMENT AND PLAN: The patient is a 28-year-old female, hospital day 24 for premature rupture of membranes with a gestational age of 30 weeks. We will continue expected management. At this time, shows no evidence of labor, acute abruption, or chorioamnionitis. Fetus has a category 1 tracing and reactive NST. Job ID: [id number]
--- NOTE | 2019-01-03 08:22 | PRG ---
DATE OF SERVICE: 01/03/2019 PRIMARY OB: Trace Vinson DO, MS SUBJECTIVE: The patient is a 28-year-old female, who is now hospital day 25 for premature rupture of membranes with an intrauterine now at 30 weeks gestation. The patient denies any fever, abdominal pain, or vaginal bleeding. OBJECTIVE: VITAL SIGNS: Blood pressure 102/51, heart rate of 84, respiratory rate of 16, temperature 98.3. GENERAL: She appears to be in no acute distress. She is alert, oriented, cooperative, pleasant to interact with. HEAD: Normocephalic, atraumatic. ABDOMEN: Gravid, soft, nontender. EXTREMITIES: Nontender. Nonedematous. LABORATORY DATA: She has a CBC and fibrinogen pending today later in the morning. heart tracing demonstrates a fetus with a baseline in the 140s, moderate long-term variability, positive 15 x 15 accelerations. Tocometer showing some irritability. ASSESSMENT AND PLAN: The patient is a 28-year-old female on hospital day 25 with an intrauterine at 30 weeks gestation here for premature rupture of membranes. The patient will continue in-house management. She has a CBC and fibrinogen pending today given her history of vaginal bleeding with this and this hospitalization, which Dr. Bullock can review once the results become available. Fetus has a reactive NST. We will continue in-house management until 34 weeks or indication for delivery. Job ID: [id number]
[2019-01-03] MEDS: Prenatal Vitamin 1 TAB PO SCH (09:14)
[2019-01-03] MEDS: Lactinex Tablet PO SCH (09:14)
[2019-01-03] MEDS: Nitrofurantoin Monohyd/M-Cryst 100 MG CAP PO SCH (09:14)
[2019-01-03 10:53] LABS: Hemoglobin 12.1 g/dL (12.0-16.0); Mean Corpuscular HGB CONC 34.8 g/dL (32.0-36.0); Mean Corpuscular Hemoglobin 33.8 pg (27.0-31.0); Mean Corpuscular Volume 97.3 fL (78.0-98.0); Mean Platelet Volume 7.5 fL (7.4-10.4); Platelet Count 161 thou/uL (130-400); RBC Distribution Width 12.3 % (11.5-14.5); Red Blood Cell (RBC) Count 3.57 mill/uL (4.20-5.40); White Blood Cell (WBC) Count 7.8 thou/uL (4.8-10.8)
--- NOTE | 2019-01-03 11:10 | PDOC.EVN ---
Event Note - Event Note Event Note: Lab check 01/03/19: Hct 34...variance in results noted from 38 to 40 to 34 now may be changes in hydration. Fibrinogen is normal at over 470 DX: PPrProm at 30 weeks 1 day
--- NOTE | 2019-01-03 16:14 | PDOC.EVN ---
Event Note - Event Note Event Note: Chart check with RN: Patient on macrobid...however, UC&S was no growth. No indication for macrobid at this time. DC done by me. Patient aware
--- NOTE | 2019-01-04 01:58 | PDOC.EVN ---
Event Note - Event Note Event Note: 30 weeks 2 days Location: L&D Stable condition Vitals reviewed Continue plan of care If labors under 32 weeks...will need mag for neuroprotection as well as GBS coverage per EGA
[2019-01-04] MEDS: Lactinex Tablet PO SCH (09:13)
[2019-01-04] MEDS: Prenatal Vitamin 1 TAB PO SCH (09:13)
[2019-01-05] MEDS: Prenatal Vitamin 1 TAB PO SCH (09:03)
[2019-01-05] MEDS: Lactinex Tablet PO SCH (09:04)
[2019-01-05] MEDS: Acetaminophen 500 MG TAB PO PRN (09:06)
--- NOTE | 2019-01-05 09:08 | PDOC.LDPN ---
Labor & Delivery Progress Note - Subjective Subjective: comfortable, other (min pink fluid, no bleeding, occ cramping, good FM, no si/sx infection) - Objective Vital signs reviewed and normal: yes General: NAD, resting FHT: category 1, variability present, absent or minimal variables - Assessment (1) History of premature rupture of membranes (PPROM) Code(s): Z87.59 - PERSONAL HISTORY OF COMP OF PREG, CHLDBRTH AND THE PUERP Current Visit: Yes Status: Acute (2) 29 weeks gestation of Code(s): Z3A.29 - 29 WEEKS GESTATION OF Current Visit: Yes Status : Acute (3) 30 weeks gestation of Code(s): Z3A.30 - 30 WEEKS GESTATION OF Current Visit: Yes Status : Acute (4) premature rupture of membranes Code(s): O42.919 - PRETRM LIZ ROM, UNSP TIME BETW RUPT AND ONST LABR, UNSP TRI Current Visit: Yes Status: Acute Plan: continue plan of care -: A/P: CBC and fibrinogen stable on Sat, NST reassuring, BPP scheduled for today (twice weekly). Completed Macrobid for possible bacteruria last week. Continue close monitoring.
--- NOTE | 2019-01-05 10:21 | ULT ---
ULTRASOUND BIOPHYSICAL PROFILE: HISTORY: Pre-term premature rupture of membranes. COMPARISON: Biophysical profile from 01/01/2019. FINDINGS: Biophysical profile score is 6/8. No fluid pockets greater than 2 cm. Amniotic fluid index is 2.4 c m. Presentation is cephalic. heart rate documented at 141 beats per minute. Cervix is not well s een. Small subamniotic hemorrhage, measuring up to 3.8 cm. IMPRESSION: 1. New from the comparison examination is a small, subamniotic hemorrhage, measuring up to 3.8 cm. 2. Biophysical profile score 6/8. 3. Amniotic fluid index 2.4 cm. POS: [facility]
[2019-01-06 08:57] LABS: #Eosinphils 0.1 thou/uL (0.0-0.7); #Lymphocytes 1.8 thou/uL (1.20-3.40); #Monocytes 0.4 thou/uL (0.11-0.59); #Neutrophils 6.5 thou/uL (1.40-6.50); %Basophils 0.5 % (0.0-1.0); %Eosinophils 0.9 % (0.0-10.0); %Lymphocytes 20.7 % (21.0-51.0); %Monocytes 4.8 % (0.0-10.0); %Neutrophils 73.2 % (42.0-75.0); Hemoglobin 12.6 g/dL (12.0-16.0); Mean Corpuscular HGB CONC 34.1 g/dL (32.0-36.0); Mean Corpuscular Hemoglobin 32.9 pg (27.0-31.0); Mean Corpuscular Volume 96.7 fL (78.0-98.0); Mean Platelet Volume 7.6 fL (7.4-10.4); Platelet Count 190 thou/uL (130-400); RBC Distribution Width 12.5 % (11.5-14.5); Red Blood Cell (RBC) Count 3.83 mill/uL (4.20-5.40); White Blood Cell (WBC) Count 8.9 thou/uL (4.8-10.8)
[2019-01-06] MEDS: Lactinex Tablet PO SCH (09:24)
[2019-01-06] MEDS: Prenatal Vitamin 1 TAB PO SCH (09:24)
--- NOTE | 2019-01-06 15:40 | PDOC.LDPN ---
Labor & Delivery Progress Note - Subjective Subjective: comfortable (no bleeding, no pain, good FM, no fever or chills) - Objective Vital signs reviewed and normal: yes General: NAD FHT: category 1, variability present - Assessment (1) History of premature rupture of membranes (PPROM) Code(s): Z87.59 - PERSONAL HISTORY OF COMP OF PREG, CHLDBRTH AND THE PUERP Current Visit: Yes Status: Acute (2) 29 weeks gestation of Code(s): Z3A.29 - 29 WEEKS GESTATION OF Current Visit: Yes Status : Acute (3) 30 weeks gestation of Code(s): Z3A.30 - 30 WEEKS GESTATION OF Current Visit: Yes Status : Acute (4) premature rupture of membranes Code(s): O42.919 - PRETRM LIZ ROM, UNSP TIME BETW RUPT AND ONST LABR, UNSP TRI Current Visit: Yes Status: Acute Plan: continue plan of care -: A/P: PPROM @ 26 weeks now at 30.4, doing well, no si/sx of labor or infection. Antepartum surveillance reassuring.
[2019-01-07] MEDS: Lactinex Tablet PO SCH (09:21)
[2019-01-07] MEDS: Prenatal Vitamin 1 TAB PO SCH (09:21)
--- NOTE | 2019-01-07 10:57 | PDOC.LDPN ---
Labor & Delivery Progress Note - Subjective Subjective: comfortable (contractions overnight that have stopped, no bleeding, good FM) - Objective Vital signs reviewed and normal: yes General: resting FHT: category 1, variability present, absent or minimal variables - Assessment (1) History of premature rupture of membranes (PPROM) Code(s): Z87.59 - PERSONAL HISTORY OF COMP OF PREG, CHLDBRTH AND THE PUERP Current Visit: Yes Status: Acute (2) 29 weeks gestation of Code(s): Z3A.29 - 29 WEEKS GESTATION OF Current Visit: Yes Status : Acute (3) 30 weeks gestation of Code(s): Z3A.30 - 30 WEEKS GESTATION OF Current Visit: Yes Status : Acute (4) premature rupture of membranes Code(s): O42.919 - PRETRM LIZ ROM, UNSP TIME BETW RUPT AND ONST LABR, UNSP TRI Current Visit: Yes Status: Acute Plan: continue plan of care -: A/P: PPROM @ 26.4, now 30.5 weeks. Continue close monitoring, anticipate IOL @ 34 weeks unless or maternal indication to deliver sooner.
--- NOTE | 2019-01-08 07:55 | PDOC.LDPN ---
Labor & Delivery Progress Note - Subjective Subjective: comfortable (Reports some ctx last night, denies any this AM. No f/ c. Good FM. ) - Objective Vital signs reviewed and normal: yes General: NAD Uterine fundus: non tender FHT: category 1 (140s, +accels, no decels, mod colin) [place] contractions every: rare ctx last night, denies any today - Assessment (1) 30 weeks gestation of Code(s): Z3A.30 - 30 WEEKS GESTATION OF Current Visit: Yes Status : Acute (2) premature rupture of membranes Code(s): O42.919 - PRETRM LIZ ROM, UNSP TIME BETW RUPT AND ONST LABR, UNSP TRI Current Visit: Yes Status: Acute -: Continue monitoring due to PPROM. CBC repeat tomorrow.
[2019-01-08] MEDS: Lactinex Tablet PO SCH (09:30)
[2019-01-08] MEDS: Prenatal Vitamin 1 TAB PO SCH (09:30)
--- NOTE | 2019-01-08 14:18 | ULT ---
BIOPHYSICAL PROFILE: HISTORY: Premature rupture of membranes. FINDINGS: Multiple longitudinal and transverse images of an intrauterine were obtained using a multih ertz curvilinear transducer. Real-time, color flow, and M-mode sonography demonstrate a viable intra uterine with a fetus in a cephalic presentation. The placenta is anterior. Placenta is gr valerie III. Cardiac activity is confirmed measuring 149 b.p.m. Amniotic fluid index measures 2.6 cm. BIOPHYSICAL PROFILE: tone 2 breathing 2 movement 2 Amniotic fluid volume 0 Composite Score 6 out of 8 IMPRESSION: Biophysical profile measures 6 out of 8. POS: [facility]
[2019-01-08] MEDS ORDERED: Butorphanol Tartrate 1 MG/ML VIAL ONE (14:48)
--- NOTE | 2019-01-09 09:01 | PDOC.LDPN ---
Labor & Delivery Progress Note - Subjective Subjective: comfortable, other (contractions and bleeding yesterday evening that resolved, good FM this AM) - Objective Vital signs reviewed and normal: yes General: resting FHT: category 1, variability present, absent or minimal variables - Assessment (1) History of premature rupture of membranes (PPROM) Code(s): Z87.59 - PERSONAL HISTORY OF COMP OF PREG, CHLDBRTH AND THE PUERP Current Visit: Yes Status: Acute (2) 30 weeks gestation of Code(s): Z3A.30 - 30 WEEKS GESTATION OF Current Visit: Yes Status : Acute (3) premature rupture of membranes Code(s): O42.919 - PRETRM LIZ ROM, UNSP TIME BETW RUPT AND ONST LABR, UNSP TRI Current Visit: Yes Status: Acute (4) 31 weeks gestation of Code(s): Z3A.31 - 31 WEEKS GESTATION OF Current Visit: Yes Status : Acute Plan: continue plan of care -: A/P: PPROM @ 26.4, now 30.0 GA. BPP yesterday 04/18 with 2 off for oligo @ 2.6cm only. CBC and fibrinogen pending tomorrow. Continue close monitoring.
[2019-01-09] MEDS: Prenatal Vitamin 1 TAB PO SCH (09:43)
[2019-01-09] MEDS: Lactinex Tablet PO SCH (09:43)
[2019-01-09] MEDS ORDERED: Terbutaline Sulfate 1 MG/ML VIAL ONE (18:50)
--- NOTE | 2019-01-09 18:51 | PDOC.EVN ---
Event Note - Event Note Event Note: @1855: called for possible isolated CTX FHTs 150s No VB I have ordered 1 liter IVF bolus and terb X 1 for symptomatic control
[2019-01-09] MEDS ORDERED: Terbutaline Sulfate 1 MG/ML VIAL SC SCH (19:00)
[2019-01-09] MEDS: Lactated Ringer's 1,000 ML IV SCH ×2 (19:01→22:30)
--- NOTE | 2019-01-09 19:09 | PDOC.EVN ---
Event Note - Event Note Event Note: At bedside Sono: cephalic Due to persistent CTX: 1. Start Mag for neuroprotection 2. PCN 3. recent sono 2 weeks ago with EFW 4. I will defer CX check as would like to reduce risk of infection...as since cephalic, will not alter initial care
[2019-01-09] MEDS ORDERED: Calcium Gluc 4.6 MEQ/10 ML (100 MG/ML) SLOW IVP PRN (19:10)
[2019-01-09] MEDS ORDERED: Promethazine HCl 25 MG/ML VIAL IM PRN (19:12)
[2019-01-09] MEDS ORDERED: Lidocaine 1% (PF) 30 ML VIAL SC PRN (19:12)
[2019-01-09] MEDS ORDERED: Penicillin G Potassium 5 MILL.UNITS VIAL ONE (19:12)
[2019-01-09] MEDS ORDERED: Magnesium Sulfate 20 gm/500 ml 20 GM/500 ML BAG ONE (19:12)
--- NOTE | 2019-01-09 19:14 | PDOC.EVN ---
Event Note - Event Note Event Note: I will wait to see Mg effect (strating now). Procardia as tocoyltic in 30 minutes to 1 hour if needed
[2019-01-09] MEDS ORDERED: Penicillin G Potassium 5 MILL.UNITS in Sodium Chloride 0.9% 100 ML IVPB SCH (19:15)
[2019-01-09] MEDS: Magnesium Sulfate 20 gm/500 ml 20 GM/500 ML BAG IVPB SCH (19:15)
[2019-01-09] MEDS ORDERED: Magnesium Sulfate 20 GM/WATER 500 ML BAG IVPB SCH (19:15)
--- NOTE | 2019-01-09 19:38 | PDOC.EVN ---
Event Note - Event Note Event Note: Procardia 20 mg oral load ordered at 1944; then 10mg one hour later...and then Q4 hrs thereafter for tocolytic. Steroids already given x 2 courses. Oral procadia regime will DC after 4 doses. Contact NICU if continues
[2019-01-09] MEDS ORDERED: NIFEdipine 10 MG CAP PO SCH ×2 (19:45→21:00)
[2019-01-09] MEDS: Ondansetron PF 4 MG/2 ML Vial IVP PRN (22:30)
[2019-01-09] MEDS: Butorphanol Tartrate 1 MG/ML VIAL SLOW IVP PRN (22:31)
[2019-01-10] MEDS: Butorphanol Tartrate 1 MG/ML VIAL SLOW IVP PRN ×2 (00:12→03:49)
--- NOTE | 2019-01-10 00:24 | PDOC.EVN ---
Event Note - Event Note Event Note: 01/10/19 @ 0023: Called just now regarding temp of 100.0. Per ACOG, suspect IAI at 100.4....we will continue to follow temps closely. If Temp 100.4 we will need to induce with pitocin. Continue mag and PCN for now. Stop procardia in case IAI declaring.
[2019-01-10] MEDS: Magnesium Sulfate 20 gm/500 ml 20 GM/500 ML BAG IVPB SCH (03:51)
[2019-01-10] MEDS: Penicillin G 2.5 MILL.units 2.5 MILL.UNITS in Premix Bag 1 BAG IVPB SCH ×3 (04:00→16:15)
[2019-01-10] MEDS: Ondansetron PF 4 MG/2 ML Vial IVP PRN (04:13)
--- NOTE | 2019-01-10 04:46 | PDOC.EVN ---
Event Note - Event Note Event Note: @2236: Shelley is now 5cm dilated. She has requested [facility] for labor care and delivery. Provider notified. NICU to be consulted.
[2019-01-10] MEDS ORDERED: Fentanyl 4 mcg/Bup 0.1% Cadd 100 ML ONE ×2 (05:55→05:56)
[2019-01-10 06:08] LABS: Mean Corpuscular HGB CONC 34.9 g/dL (32.0-36.0); Mean Corpuscular Hemoglobin 32.9 pg (27.0-31.0); Mean Corpuscular Volume 94.4 fL (78.0-98.0); Mean Platelet Volume 7.2 fL (7.4-10.4); Platelet Count 181 thou/uL (130-400); RBC Distribution Width 12.3 % (11.5-14.5); Red Blood Cell (RBC) Count 3.64 mill/uL (4.20-5.40); White Blood Cell (WBC) Count 18.8 thou/uL (4.8-10.8)
[2019-01-10] MEDS ORDERED: Oxytocin 10 UNITS/ML VIAL ONE (07:25)
[2019-01-10] MEDS ORDERED: Lidocaine 1% (PF) 30 ML VIAL ONE (07:26)
[2019-01-10] MEDS ORDERED: Misoprostol 200 MCG TAB ONE (07:26)
[2019-01-10] MEDS: NS / Oxytocin 40 units/1000ml 1,000 ML IV PRN ×2 (07:40→12:59)
--- NOTE | 2019-01-10 08:15 | PDOC.OPDEL ---
OB Operative/Delivery Note Delivery Dr/Surgeon: Wilmer Samuel Pre-Delivery Diagnosis: active labor, ruptured membrane, other (PPROM 31 weeks gestation) Procedure/Post Delivery Dx: spontaneous vaginal delivery Weeks gestation: 31 Anesthesia: epidural - Findings A Sex: male Weight: 3 lb 12 oz - 1 min: 2 - 5 min: 7 - Additional Findings/Plan Placenta delivered: spontaneous Repaired Obstetrical Laceration: none Estimated blood loss: 250mL Compilations/Other Findings: Nuchal cord - lose non-reducible low tone and respiratory effort - handed off to awaiting didier team Post delivery plan: routine recovery
[2019-01-10] MEDS ORDERED: Lanolin Ointment 7 GM TUBE TOP PRN (10:41)
[2019-01-10] MEDS ORDERED: NS / Oxytocin 40 units/1000ml 1,000 ML IV SCH (10:41)
[2019-01-10] MEDS ORDERED: Bisacodyl 10 MG SUPP PR PRN (10:41)
[2019-01-10] MEDS ORDERED: Adacel (T-DAP) 0.5 ML SYRINGE IM ONE (10:41)
[2019-01-10] MEDS ORDERED: Benzocaine/Menthol 20-0.5% 60 ML CAN TOP PRN (10:41)
[2019-01-10] MEDS ORDERED: Milk Of Magnesia 30 ML UDCUP PO PRN (10:41)
[2019-01-10] MEDS ORDERED: Ondansetron PF 4 MG/2 ML Vial IVP PRN (10:41)
[2019-01-10] MEDS ORDERED: Methylergonovine 0.2 MG/ML VIAL IM PRN (10:41)
[2019-01-10] MEDS ORDERED: HYDROcodone/Acetaminophen 5/325 mg Tablet PO PRN ×2 (10:41)
[2019-01-10] MEDS ORDERED: Bupivacaine/Epinephrine 0.25% 30 ML VIAL ONE (11:11)
[2019-01-10] MEDS ORDERED: Docusate Calcium (SURFAK) 240 MG CAP PO SCH (11:30)
[2019-01-10] MEDS ORDERED: Ibuprofen 800 MG TAB PO SCH (11:45)
[2019-01-10] MEDS: Prenatal Vitamin 1 TAB PO SCH (16:16)
[2019-01-10] MEDS: Lactinex Tablet PO SCH (16:16)
[2019-01-10] MEDS: Ibuprofen 800 MG TAB PO SCH ×2 (16:17→22:25)
[2019-01-10] MEDS: Ferrous Sulfate 325 MG TAB PO SCH (19:33)
[2019-01-10] MEDS: Docusate Calcium (SURFAK) 240 MG CAP PO SCH (22:25)
[2019-01-11] MEDS: Ibuprofen 800 MG TAB PO SCH (05:58)
[2019-01-11 06:54] LABS: Hemoglobin 9.2 g/dL (12.0-16.0); Mean Corpuscular HGB CONC 33.5 g/dL (32.0-36.0); Mean Corpuscular Hemoglobin 33.3 pg (27.0-31.0); Mean Corpuscular Volume 99.5 fL (78.0-98.0); Mean Platelet Volume 7.4 fL (7.4-10.4); Platelet Count 148 thou/uL (130-400); RBC Distribution Width 12.9 % (11.5-14.5); Red Blood Cell (RBC) Count 2.75 mill/uL (4.20-5.40); White Blood Cell (WBC) Count 10.5 thou/uL (4.8-10.8)
--- NOTE | 2019-01-11 07:52 | PDOC.PP ---
Post Progress Note Post Day #: 1 Subjective: Pt is doing well. Ready to go home. Pumping is going well. Denies SOB, cough wheezing. Reports some cramping pain while pumping. PO intake tolerated: yes Flatus: yes Ambulation: yes Vital Signs (12 hours) Temp Pulse Resp BP Pulse Ox 01/11/19 04:07 82 86/50 L 01/11/19 03:45 98.3 F 91 20 81/43 L 01/10/19 23:55 98.1 F 97 16 87/50 L 01/10/19 20:00 98.2 F 77 20 96/52 L 97 Weight Weight 135 lb - Physical Examination General: NAD Cardiovascular: no m/r/g, RRR Respiratory: clear to auscultation bilaterally, non-labored breathing Abdominal: + bowel sounds Fundus firm & at: -2 Extremities: negative homans (B) Neurological: no gross focal deficits Psychiatric: A&Ox3, normal affect Result Diagrams: 01/11/19 06:11 Additional Labs: Post Labs Blood Type A POSITIVE 12/09/18 10:04 Hep Bs Antigen Non-Reactive S/CO (NonReactive) 12/09/18 10:04 - Assessment/Plan A: G2 now P2 s/p complicated by PPROM, labor, 2nd trimester bleeding. WBC decreased today from 18.8 to 10.5. Afebrile and nml Vital signs. P: discharge home today. 6 week visit Tdap prior to discharge.
[2019-01-11 09:00] VITALS: BP 95/51; TEMP 98.1
[2019-01-11] MEDS ORDERED: Prenatal Vitamin 1 TAB PO SCH (09:00)
[2019-01-11] MEDS: Ferrous Sulfate 325 MG TAB PO SCH (09:22)
[2019-01-11] MEDS: Docusate Calcium (SURFAK) 240 MG CAP PO SCH (10:48)
== END 2019-01-11 12:00 | disposition home or self-care (01) | DRG 805 ==
LOC: L&D/OP 08:23 → L&D 08:50 → 3SW 01-10 13:31
PROVIDERS: ADMIT Obstetrics & Gynecology; ATTEND Obstetrics & Gynecology
PROC: 10E0XZZ Delivery of Products of Conception, External Approach (ICD-10-PCS; principal; 2019-01-10)
DX: O42.112 Preterm premature rupture of membranes, onset of labor more than 24 hours following rupture, second trimester (principal); O60.13X0 Preterm labor second trimester with preterm delivery third trimester, not applicable or unspecified; O41.02X0 Oligohydramnios, second trimester, not applicable or unspecified; O67.9 Intrapartum hemorrhage, unspecified; Z3A.26 26 weeks gestation of pregnancy; O69.81X0 Labor and delivery complicated by cord around neck, without compression, not applicable or unspecified; Z37.0 Single live birth
CPT/HCPCS: 36415; 51702; 59025; 76700; 76805; 76819; 81001; 84112; 85025; 85027; 85384; 86780; 86850; 86900; 86901; 87086; 87340; 87480; 87510; 87660; 88307; 90715; 99285; J0290; J0595; J0702; J2001; J2405; J2540; J2590; J3105; J3475; J7050